=== PATIENT | male | born 1970 | race Caucasian/White ===

== ENCOUNTER 2019-09-13 13:04 | Emergency (ER) | payer MEDICAID ==
[~2019-09-13] VITALS: Ht 182.9 cm; Wt 90.7 kg
[2019-09-13 14:19] LABS: BASOPHIL % 0.4 % (0-2); PLATELET COUNT 182 x10^3mcL (130-400); RED CELL DISTRIBUTION WIDTH 12.8 % (11.5-14.5)
[2019-09-13 14:40] LABS: CALCIUM 8.6 mg/dL (8.5-10.1); CARBON DIOXIDE 25.6 mmol/L (21-32); CHLORIDE SERUM 102 mmol/L (98-107); CREATININE SERUM 0.9 mg/dL (0.7-1.3); GFR1 > 60 mL/min; GLUCOSE SERUM 253 mg/dL (74-106); POTASSIUM SERUM 4.4 mmol/L (3.5-5.1); SODIUM SERUM 138 mmol/L (136-145)
[2019-09-13 14:44] LABS: ALKALINE PHOSPHATASE 74 U/L (46-116); ALT/SGPT 40 U/L (16-63); BILIRUBIN TOTAL 0.5 mg/dL (0.20-1.00); CHOLESTEROL 247 mg/dL (<200); TOTAL PROTEIN, SERUM 7.2 g/dL (6.4-8.2)
[2019-09-13 15:11] LABS: AST/SGOT 31 U/L (15-37)
[2019-09-13 15:45] VITALS: BP 137/96
== END 2019-09-13 15:45 | disposition short-term general hospital (02) ==
LOC: ED 13:04 → EDBD 13:04 → ED 15:45
PROVIDERS: Specialist
DX: R56.9 Unspecified convulsions (principal); S00.01XA Abrasion of scalp, initial encounter; S00.512A Abrasion of oral cavity, initial encounter; I10 Essential (primary) hypertension; E11.9 Type 2 diabetes mellitus without complications; Z98.890 Other specified postprocedural states; W18.39XA Other fall on same level, initial encounter; Y93.89 Activity, other specified; Y92.091 Bathroom in other non-institutional residence as the place of occurrence of the external cause; Y99.0 Civilian activity done for income or pay
CPT/HCPCS: G0480; J3490; Q0092